=== PATIENT | male | born 1965 | race Caucasian/White ===

== ENCOUNTER 2020-09-19 16:22 | Outpatient (CLI) | payer BC, SELFPAY ==
--- NOTE | 2020-09-19 14:03 | DI.RAD_ITS ---
Exam(s) XR CERVICAL SPINE COMP 4-5V EXAM: XR CERVICAL SPINE COMP 4-5V CLINICAL HISTORY: cervical neck pain, cervicalgia, M54.2. TECHNIQUE: 2D digital imaging was performed. COMPARISON: No exams were available for comparison FINDINGS: There is no evidence of fracture, listhesis, nor offset of the spinal laminar line. There is mild di sc space narrowing at C4-5 and C6-7 levels. C5-6 level exhibits normal height but some calcification in the anterior longitudinal ligament. No prominent facet arthropathy. No cervical ribs IMPRESSION: Degenerative disc disease as described above. If clinically indicated follow-up MRI can be performed . DATA REPOSITORY: RADIATION DOSE DELIVERED:
== END 2020-09-19 16:42 ==
PROVIDERS: Visit Provider Nurse Practitioner Family
DX: M50.321 Other cervical disc degeneration at C4-C5 level (principal)
CPT/HCPCS: 72050

== ENCOUNTER 2021-07-04 20:26 | Outpatient (REF) | payer BC, SELFPAY ==
[2021-07-04 19:39] LABS: Abs Immature Grans 0.02 10^3/uL (0.0-0.06); Absolute Basophil Count 0.02 10^3/uL (0.0-0.2); Absolute Eosinophil Count 0.15 10^3/uL (0.0-0.7); Absolute Lymphocyte Count 2.28 10^3/uL (1.2-3.4); Absolute Monocyte Count 0.65 10^3/uL (0.1-0.8); Absolute Neutrophil Count 4.54 10^3/uL (1.2-6.7); Basophils % 0.3; HCT 44.1 % (40.0-50.0); HGB 14.4 g/dL (13.5-17.5); Immature Grans % 0.3; Lymphocytes % 29.8; MCH 30.6 pg (27.0-33.0); MCHC 32.7 % (32.0-36.0); MCV 94 fL (80-95); Monocytes % 8.5; Neutrophils % 59.1; Platelet Count 198 10^3/uL (130-400); RDW 13.2 % (11.8-14.1); WBC 7.66 10^3/uL (4.4-10.8)
[2021-07-04 19:58] LABS: ALT 31 U/L (16-63); AST 14 U/L (15-37); Albumin 4.1 g/dL (3.4-5.0); Alkaline Phosphatase 57 U/L (46-116); Anion Gap 6.6 mmol/L (3-11); BUN 15 mg/dL (7-18); Bilirubin, Total 0.3 mg/dL (0.2-1.0); CO2 29.4 mmol/L (21.0-32.0); CREATININE 0.9 mg/dL (0.70-1.30); Calcium 8.6 mg/dL (8.5-10.1); Calculated LDL 178 mg/dL (<100); Chloride 106 mmol/L (98-107); Cholesterol 279 mg/dL (<200); Glucose 97 mg/dL (74-106); HDL Cholesterol 73 mg/dL (40-60); Potassium 4.8 mmol/L (3.5-5.1); Sodium 142 mmol/L (136-145); Triglyceride 143 mg/dL (<150)
[2021-07-06 03:54] LABS: Vitamin D 25 Total 29.4 ng/mL (30-100)
== END 2021-07-04 20:27 | disposition home or self-care (01) ==
LOC: NCHCN 20:26
PROVIDERS: Visit Provider Nurse Practitioner Family
DX: K21.9 Gastro-esophageal reflux disease without esophagitis (principal); Z13.220 Encounter for screening for lipoid disorders; Z13.21 Encounter for screening for nutritional disorder
CPT/HCPCS: 80053; 80061; 82306; 85025